=== PATIENT | male | born 1935 | race Caucasian/White ===

== ENCOUNTER → 2018-08-30 | Outpatient (CLI) | payer MEDICARE, OTHER ==
--- NOTE | 2018-08-30 17:25 | RADIOLOGY REPORT (SQ) ---
EXAM DESCRIPTION: CAROTID DOPPLER COMPLETED DATE/TIME: 08/30/2018 4:46 pm REASON FOR STUDY: RETINAL HEMORRHAGE BILATERAL H35.63 RETINAL HEMORRHAGE, BILATERAL COMPARISON: None. TECHNIQUE: Grayscale ultrasound, Doppler velocity and spectra, and color Doppler images acquired of the extra-cranial carotid and vertebral arteries. Images stored on PACS. LIMITATIONS: None. FINDINGS: RIGHT CAROTID CCA Velocities: Within normal limits. ICA Velocities Peak systolic 0.83 m/s. End diastolic 0.22 m/s. Proximal ICA/CCA peak systolic ratio 1.31. There is calcified plaque in the carotid bulb and proximal ICA. LEFT CAROTID CCA Velocities: Within normal limits. ICA Velocities Peak systolic 1.34 m/s. End diastolic 0.36 m/s. Proximal ICA/CCA peak systolic ratio 1.74. There is calcified plaque in the carotid bulb and proximal ICA. VERTEBRAL ARTERIES: Antegrade flow. Normal waveforms. SUBCLAVIAN ARTERIES: No finding. OTHER: No other significant finding. IMPRESSION: Mildly elevated velocities in the left internal carotid artery. Calcified plaque bilate rally. No hemodynamically significant stenosis. COMMENT: Quality ID #[id number]: Velocity criteria are extrapolated from the diameter data as defined by t he Society of Radiologists in Ultrasound Consensus Conference. Radiology 2003: 229; 340-346. TECHNICAL DOCUMENTATION: JOB ID: [id number] [employer]- All Rights Reserved Reading location - IP/workstation name: [email or web address]
== END ==
LOC: SP 13:36
PROVIDERS: ATTEND Ophthalmology
DX: H35.63 Retinal hemorrhage, bilateral (principal)
CPT/HCPCS: 93880